=== PATIENT | male | born 1970 | race Caucasian/White ===

== ENCOUNTER 2022-06-09 10:15 | Outpatient (CLI) | payer BC, SELFPAY ==
[2022-06-09 13:54] LABS: Creatinine Urine 155.6 mg/dL
[2022-06-09 13:55] LABS: Microalbumin Creatinine Ratio 0 mg/g (0-30); Microalbumin Urine 1 mg/dL
== END 2022-06-09 10:16 | disposition home or self-care (01) ==
LOC: FRMREF 10:39
PROVIDERS: PCP Family Medicine; Visit Provider Family Medicine
DX: E11.9 Type 2 diabetes mellitus without complications (principal); K76.0 Fatty (change of) liver, not elsewhere classified
CPT/HCPCS: 82043; 82570

== ENCOUNTER 2022-06-12 16:32 | Emergency (ER) | payer BC, SELFPAY ==
[2022-06-12 16:38] VITALS: BMI 58.7
--- NOTE | 2022-06-12 16:48 | ED.GENADULT ---
HPI - General Adult General Chief complaint: Unspecified Complaint, Adult Stated complaint: High potassium level Time Seen by Provider: 06/12/22 16:42 History of Present Illness HPI narrative: This 51-year-old male was in for clinic appointment to checkup on his type 2 diabetes. He had labs drawn at that time which was 3 days ago. Using that same specimen he had further labs drawn yesterday including a potassium which returns elevated at 7.2. The patient states that he feels fine. It was explained to him by the clinic that this is most likely a hemolyzed result but he should come in for a recheck. Related Data Home Medications Medication Instructions Recorded Confirmed Diabetic Test Strips 06/12/22 06/12/22 diabetic supplies, miscellan. 06/12/22 06/12/22 Previous Rx's Medication Instructions Recorded glipizide 10 mg tablet, extended 10 mg PO QDAY #90 tabs 06/12/22 release 24 hr metformin 500 mg tablet,extended 1,000 mg PO QDAY #180 tabs 06/12/22 release 24hr semaglutide 0.25 mg or 0.5 mg (2 0.25 - 0.5 mg (0.2 - 0.4 mL) 06/12/22 mg/1.5 mL) subcutaneous pen subcut QWEEK #4.5 mL injector (Intrallect) Allergies Allergy/AdvReac Type Severity Reaction Status Date / Time aspirin Allergy Severe Angioedema Verified 06/12/22 15:43 NSAIDS (Non-Steroidal Allergy Severe Urticaria Verified 06/12/22 15:43 Anti-Inflamma with angioedema Review of Systems Status of ROS: Reports: 10 or more systems reviewed and unremarkable except as noted in History and below Narrative: Constitutional: No fevers, no weight gain or loss. Eyes: No discharge. No vision changes. HENT: No congestion, no sore throat, no ear pain. Cardiovascular: No chest pain, no palpitations. Respiratory: No shortness of breath, no wheezes, no cough. Gastrointestinal: No abdominal pain, no vomiting, no diarrhea. Genitourinary: No dysuria, no hematuria. Musculoskeletal: Normal range of motion. Skin: No rashes, no pruritis. Neurological: No dizziness, weakness, sensory change, speech change. Endo/Heme/Allergies: No bruising or bleeding. No polydipsia. Pysch: no suicidality, no anxiety, no insomnia. All other systems reviewed and are negative. [facility] Medical History (Updated 06/12/22 @ 18:10 by Ramana Koch MD) Diabetes mellitus, type II Hyperlipidemia Surgical History (Updated 05/26/22 @ 16:00 by Emmy Hanson) No pertinent past surgical history Family History (Updated 05/26/22 @ 16:03 by Emmy Hanson) Father Prostate cancer Other Breast cancer Social History (Updated 05/26/22 @ 16:03 by Emmy Hanson) Narrative: Does not use illicit drugs Former smoker- quit Nov 2014 Occasional alcohol consumption Smoking Status: Former smoker Do you use any of these nicotine containing products: None Second hand tobacco smoke exposure: Yes How often do you have a drink containing alcohol: never How often do you have six or more drinks on one occasion: Never AUDIT-C Alcohol total score: 0 Non-prescribed substance use: denies use service: No Exam Narrative: Exam Narrative: Constitutional: Well-developed, well-nourished, no acute distress. HEENT: Normocephalic, atraumatic. Neck: Normal range of motion. Nontender. Supple. Heart: Regular. No murmurs. Normal rate. Intact distal pulses. Lungs: Clear to auscultation. No chest discomfort. No wheezes, rhonchi, or rales. Abdomen: Normal bowel sounds. Nontender. No rebound tenderness. Genitalia: Deferred. Back: No midline tenderness. Normal range of motion. Extremities: Normal range of motion. No injury. Skin: Intact. No rash. Warm. No erythema or pallor. Neurologic: No altered sensation. No weakness. Alert and oriented. Psychiatric: No suicidality. No anxiety or depression. No insomnia. Nursing notes and vitals signs are reviewed. Medical Decision Making MDM Narrative Medical decision making narrative: This patient comes in because of a potassium level that was significantly elevated at 7.2. This was in a clinic test done yesterday. He feels normal. It is rather suspicious that this is a hemolyzed results. A repeat basic metabolic panel shows normal potassium level of 4.2. Patient is okay to go home and continue current plans. Lab Data Labs: Lab Results 06/12/22 Range/Units 17:09 Sodium 135 (135-149) mmol/L Potassium 4.2 (3.6-5.1) mmol/L Chloride 102 (96-114) mmol/L Carbon Dioxide 26 (20-32) mmol/L BUN 25 H (5-24) mg/dL Creatinine 0.9 (0.5-1.5) mg/dL Estimated Creat Clear 96.06 Estimated GFR 105 ml/min Glucose 210 H (60-115) mg/dL Calcium 9.2 (8.4-10.6) mg/dL Discharge Plan Discharge Clinical Impression: Abnormal laboratory test result Patient Disposition: Home, Self-Care Condition: Stable Additional Instructions: Continue current plans. Follow up with MD or return if worsening symptoms happen. Prescriptions: No Action (DME) Diabetic Test Strips Misc See Rx Instructions .Route Rx Instructions: Accucheck (DME) diabetic supplies, miscellan. Misc See Rx Instructions .Route Rx Instructions: Lancets - accucheck glipizide 10 mg tablet extended release 24hr 10 mg PO QDAY Qty: 90 4RF metformin 500 mg tablet extended release 24hr 1,000 mg PO QDAY Qty: 180 4RF Ozempic 0.25 mg or 0.5 mg(2 mg/1.5 mL) pen injector 0.25 - 0.5 mg subcut QWEEK Qty: 4.5 4RF Rx Instructions: 0.25mg for 4 doses, then increase to 0.5mg Follow Up/Referrals: Salvador Almanza MD [Referring] - Stand Alone Forms: MyHealth Info Instructions
[2022-06-12 17:29] LABS: Chloride* 102 mmol/L (96-114); Potassium* 4.2 mmol/L (3.6-5.1); Sodium* 135 mmol/L (135-149)
[2022-06-12 17:32] LABS: Blood Urea Nitrogen* 25 mg/dL (5-24); Carbon Dioxide* 26 mmol/L (20-32); Creatinine* 0.9 mg/dL (0.5-1.5); Est. Creatinine Clearance* 96.06; Estimated Glomerular Filt Rate 105 ml/min; Glucose* 210 mg/dL (60-115)
[2022-06-12 17:33] LABS: Calcium* 9.2 mg/dL (8.4-10.6)
== END 2022-06-12 18:20 | disposition home or self-care (01) ==
PROVIDERS: Emergency Provider Emergency Medicine Emergency Medical Services; PCP Family Medicine
DX: R79.89 Other specified abnormal findings of blood chemistry (principal)
CPT/HCPCS: 36415; 80048; 80053; 80061; 84153; 99282; 99283

== ENCOUNTER 2022-09-17 15:09 | Outpatient (CLI) | payer BC, SELFPAY | END 2022-09-17 15:10 | disposition home or self-care (01) | LOC: LKVREF 15:09 | PROVIDERS: PCP Family Medicine; Visit Provider Emergency Medicine | DX: L02.91 Cutaneous abscess, unspecified (principal) | CPT/HCPCS: 87070 ==

== ENCOUNTER 2022-12-29 06:56 | Outpatient (CLI) | payer BC, SELFPAY | END 2022-12-29 06:57 | disposition home or self-care (01) | PROVIDERS: PCP Family Medicine; Visit Provider Family Medicine | DX: Z00.00 Encounter for general adult medical examination without abnormal findings (principal); E11.9 Type 2 diabetes mellitus without complications; E78.5 Hyperlipidemia, unspecified; M54.12 Radiculopathy, cervical region; G89.29 Other chronic pain; Z79.899 Other long term (current) drug therapy | CPT/HCPCS: 80053; 82043; 82570; 82607; 84156 ==

== ENCOUNTER 2023-11-17 06:51 | Outpatient (CLI) | payer BC, SELFPAY | END 2023-11-17 06:52 | disposition home or self-care (01) | PROVIDERS: PCP Family Medicine; Visit Provider Family Medicine | DX: K76.0 Fatty (change of) liver, not elsewhere classified (principal); E78.5 Hyperlipidemia, unspecified; Z12.5 Encounter for screening for malignant neoplasm of prostate | CPT/HCPCS: 80053; 80061; 82043; 82570; 82607; 86803; G0103 ==

== ENCOUNTER 2024-08-04 06:44 | Outpatient (CLI) | payer BC, SELFPAY | END 2024-08-04 06:45 | disposition home or self-care (01) | LOC: FRMREF 06:44 | PROVIDERS: PCP Family Medicine; Visit Provider Family Medicine | DX: K76.0 Fatty (change of) liver, not elsewhere classified (principal); E11.65 Type 2 diabetes mellitus with hyperglycemia | CPT/HCPCS: 80053 ==